=== PATIENT | male | born 1955 | race Caucasian/White ===

== ENCOUNTER 2024-03-21 21:20 | Inpatient (IN) | payer MEDICARE, OTHER ==
[~2024-03-21] VITALS: Ht 167.6 cm; Wt 60.7 kg
[2024-03-21] MEDS ORDERED: mag hydrox/Alum hydrox/simeth 30ml oral suspension PO PRN (22:40)
[2024-03-21] MEDS ORDERED: magnesium hydroxide 30ml (MOM) UD suspension PO PRN (22:50)
[2024-03-21] MEDS ORDERED: loperamide 2mg capsule PO PRN (22:50)
[2024-03-21] MEDS ORDERED: acetaminophen 325mg tablet PO PRN (22:50)
[2024-03-21] MEDS: traZODone 50mg tablet PO ONE (22:52)
[2024-03-22 00:43] VITALS: RESP 18; O2SAT 96
--- NOTE | 2024-03-22 01:49 | NUR ---
Admit Note: Pt arrived via wheelchair from [facility]. Pt on 5150 after trying to harm self. Pt sat in his car and had tubing going from tailpipe into his mouth. Pt wrote a "goodbye" text to brother. Pt stated he felt tired and at peace. Pt's brother pulled him from the car and called 911. Pt was unresponsive. Pt stated he was pissed that it didn't work and if discharged today he would try and harm himself again but would do it at night so no one could stop him. 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 Pt has trouble reading and trouble reading lips. Difficult to complete admission. Urine Tox screen shows positive for Methamphetamine.
[2024-03-22 07:00] VITALS: RESP 12; O2SAT 97
[2024-03-22 08:00] VITALS: BP 134/76; PULSE 64; RESP 12; TEMP 98.3; O2SAT 97
--- NOTE | 2024-03-22 14:29 | NUR ---
Nursing Progress Note: Problem: Impaired communication, fatigue, bad dreams. Interventions: 1:1 assessment, establishment of rapport, therapeutic communication, active listening, ensured contract for safety, encouraged pt to come out of his room, provided direction and simple instructions, fall prevention, Q15 minute safety checks. Response: Pt spent much of the shift sleeping. Pt did come out of his room and eat meals in the dining room. Pt ambulated with a FWW. Pt is deaf. Pt does not seem to be able to read lips. Communicated with pt by writing on a notepad. Pt would read the questions and then respond verbally. Pt pointed at the SI question and shook his head no. In response to the written depression question pt stated, "I really haven't thought about it...I haven't gotten over the sleeping part...I just can't get over being tired." Pt did go on to say, "I'm trying not to think about things or I might get depressed. Pt denied AH, pt did report seeing "spots on the side of this eye." Pt gestured to his right eye. Pt wears glasses. Pt c/o "crazy dreams...fighting with my brother, urinating on the bed." Reviewed pt's paper chart. Pt had what looks to be a +UA on 03/19: moderate leukocyte esterase, 4+ bacteria, 5-10 WBCs, culture indicated. Told pt he possibly had a bladder infection, pt nodded and said, "yes." Will discuss UA results with MD. Plan: Continue to use written communication, notify MD of UA results, continue to maintain safety and assess for mental health symptoms. Addendum: 03/22/24 at 1543 by Rosemary Walker RN (Lee) Hospitalist Dr Cabrera here to see the patient, notified of +UA results from [facility]. Addendum: 03/22/24 at 1715 by Rosemary Walker RN (Lee) Pt has new orders for Protonix 40 mg daily, UA/C&S, Cipro 250 mg BID to start tonight at 2200. Urine sample collected and sent to the lab.
[2024-03-22] MEDS ORDERED: bisacodyl 10mg suppository rectal RC PRN (17:45)
[2024-03-22 19:00] VITALS: RESP 14; O2SAT 98
[2024-03-22 19:11] VITALS: BP 152/86; PULSE 65; RESP 14; TEMP 97.8; O2SAT 98
[2024-03-22] MEDS: ciprofloxacin 250mg tablet PO SCH (20:46)
[2024-03-22] MEDS: traZODone 50mg tablet PO SCH (20:48)
[2024-03-22] MEDS: mag hydrox/Alum hydrox/simeth 30ml oral suspension PO PRN (20:54)
[2024-03-22] MEDS: hydrOXYzine 25 MG tablet PO PRN (21:24)
--- NOTE | 2024-03-23 03:16 | NUR ---
Nursing Progress Note: Lamonte Problem: Impaired communication, Fatique Interventions: 1:1 assessment, establishment of rapport, therapeutic communication, active listening, ensured contract for safety, encouraged pt to come out of his room, provided pt with hand written questions, fall prevention, Q15 minute safety checks and hourly nursing rounds. Response: Pt was asleep at start of shift. Pt was seen up using his FFW. Pt is found sitting on the floor. Pt looks very depressed. Pt stated he wants to be left alone. After a short while pt went back to his room. Pt does no want to talk at this time. Pt did get up for snack but told typewriter ribbon winder he has an upset stomach after eating his meals here. "I feel like I'm going to throw up". Pt was given Maalox 30mls. Pt is compliant with medications tonight. "I've been feeling anxious and tearful today, is there something you can give me". Order obtained for Atarax 25mg TID prn. Pt received 25mg of Atarax which seemed to help. Pt does endorse SI and denies HI/AH/VH. Pt has not had a BM in days, Unsure when last BM occurred. Encouraged pt to take the suppository ordered tomorrow morning. Monitor for safety. Plan: Continue to use written communication, continue to maintain safety and assess for mental health symptoms.
[2024-03-23 07:30] VITALS: BP 132/78; PULSE 62; RESP 12; TEMP 98.2; O2SAT 96
[2024-03-23] MEDS: pantoprazole 40mg Tablet.DR PO SCH (07:58)
--- NOTE | 2024-03-23 16:58 | NUR ---
Nursing Progress Note: Lamonte Problem: Impaired communication, SI Interventions: 1:1 assessment, establishment of rapport, therapeutic communication using writing pad, active listening, ensured contract for safety, encouraged pt to come out of his room, provided pt with hand written questions, fall prevention, Q15 minute safety checks and hourly nursing rounds. Response: RN received pt. asleep in bed at change of shift. Pt. awoke and took and ate breakfast and took all AM medications. Pt. went back to his room and observed resting in bed. 1:1 done at bedside. Pt. communicated using writing pad. Pt. reports SI without a plan. Pt. denies HI, A/V hallucinations. Pt. observed pacing trujillo with his walker. Pt. attended AM group. Pt. observed napping intermittently throughout the day. Pt. showered in the afternoon. Plan: Continue to use written communication, continue to maintain safety and assess for mental health symptoms.
[2024-03-23 20:00] VITALS: BP 120/78; PULSE 67; RESP 16; TEMP 98.3; O2SAT 98
--- NOTE | 2024-03-24 00:28 | NUR ---
Nursing Progress Note: Problem: Impaired communication, SI Interventions: 1:1 assessment, establishment of rapport, therapeutic communication using writing pad, active listening, fall prevention, Q15 minute safety checks and hourly nursing rounds. Response: Patient is pleasant and cooperative with care; compliant with medication. Patient is deaf and has difficulty reading small prints; a note pad with larger writing was used for designer/writer to communicate. Patient continues to endorse SI and stated, "this time I know how to do it without anyone finding me." He denied HI, A/VH but appeared to be explaining having intrusive thoughts; no apparent delusions expressed. Patient inquired how long the doctors intend to hold him; designer/writer explained his legal hold to him. Afterward, patient expressed not feeling safe to discharge at this time and reported he would be willing to stay voluntarily. Patient mostly isolative to his room but briefly walked the unit (requires reminders to use FFW) and HS snack; he is observed sleeping and does not appear to be having difficulty. Plan: Patient continues to require interruption of current crisis in a safe and therapeutic environment with possible medication adjustments. Addendum: 03/24/24 at 0122 by Cira Ivory RN RN reviewed and agrees with WALLPAPER EMBOSSER HELPER documentation.
[2024-03-24 07:30] VITALS: PULSE 63; RESP 16; TEMP 98.1; O2SAT 97
--- NOTE | 2024-03-24 09:03 | NUR ---
Initial: Pt admit for depression with SI. 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 Pt currently on a pureed diet and eating well, documented with 100% PO intake of meals meeting estimated nutrient needs. LBM 03/23 per EMR. No nutrition intervention implemented at this time. Will continue to follow and make recommendations as appropriate. Recommendations: 1) Continue pureed diet; monitor need for BSS with ST 2) Bowel care PRN 3) Weekly scaled weights Addendum: 03/24/24 at [address] Amended: Links added.
[2024-03-24] MEDS: ESCITALOPRAM 10 mg tablet 10 MG TABLET PO ONE (11:32)
[2024-03-24 14:45] VITALS: BP_SYST 138; BP_SYST 141; BP_SYST 143; BP_DIAS 86; BP_DIAS 90; BP_DIAS 95; PULSE 61; PULSE 81; RESP 63
--- NOTE | 2024-03-24 14:45 | NUR ---
Pt. came out of his room and went to his knees (witnessed by staff). Pt. states that he had just gotten out of bed and felt dizzy. Orthostatic vitals taken which were Supine 143/90 HR 61 Sitting 141/95 HR 63 Standing 138/86 HR 81 Reported to pt.'s provider and CMP ordered and pt. is to be encouraged to increase PO fluids.
--- NOTE | 2024-03-24 15:50 | NUR ---
PHONE CALL WITH BROTHER Spoke to Lamonte's twin brother, Rishi (ph# [phone]) to gather information. Rishi reported Lamonte is in the process of getting evicted and has approximately 60 days left in his residence. He lives between [place] and [place] on [place] in a mobile home. He works on the ranch to pay for rent. The civil designer recently shut off his power and water because Lamonte owed money to [employer].Rishi reported Lamonte had a series of unfortunate events that led to his suicide attempt. He reported someone was also trying to get Lamonte arrested for growing marijuana. He reported Lamonte is a very hard worker and very strong (however, he looks quite frail). Rishi reported a couple weeks ago Lamonte had told him that "I have lost something" and seemed quite down and depressed. He also threatened to kill Rishi. He noted someone witnessed Lamonte waving around a pistol and was making statements about wanting to kill Rishi so this person told Rishi about the incident. Rishi reported he sleeps with a gun because he is fearful Lamonte will indeed try to kill him. Lamonte has a daughter and a granddaughter who live in [place]. He does not have contact with them though. Rishi was unsure of housing options for Lamonte upon discharge from [facility]. LEROY Kong
[2024-03-24] MEDS: lactose-reduced food (Ensure Enlive) - 237ml bottle PO SCH (18:11)
[2024-03-24 18:21] LABS: ALANINE AMINOTRANSFERASE 23 U/L (12-78); ALBUMIN 2.9 G/DL (3.4-5.0); ALBUMIN/GLOBULIN RATIO 0.8 (1.1-1.5); ALKALINE PHOSPHATASE 60 IU/L (46-116); ANION GAP 7 (8-16); ASPARTATE AMINO TRANSFERASE 25 U/L (10-37); BILIRUBIN,TOTAL 0.2 MG/DL (0.1-1.0); BLOOD UREA NITROGEN 22 MG/DL (7-18); BUN/CREATININE RATIO 24.2 (10.0-20.0); CALCIUM 8.6 MG/DL (8.5-10.1); CHLORIDE 100 MMOL/L (99-107); CREATININE 0.91 MG/DL (0.60-1.10); GLUCOSE 102 MG/DL (70-104); POTASSIUM 4.3 MMOL/L (3.5-5.1); SODIUM 136 MMOL/L (135-145); TOTAL CARBON DIOXIDE 29.5 MMOL/L (24-32); TOTAL PROTEIN 6.7 G/DL (6.4-8.2); eCRCL 62 ML/MIN; eGFR 83 ML/MIN
--- NOTE | 2024-03-24 18:23 | NUR ---
Nursing Progress Note: Lamonte Problem: Deaf, SI, Dizziness Interventions: 1:1 assessment, establishment of rapport, therapeutic communication using writing pad, active listening, ensured contract for safety, encouraged pt to come out of his room, provided pt with hand written questions, fall prevention, Q15 minute safety checks and hourly nursing rounds. Encouraged pt. to use walker. Encouraged PO fluids. CMP ordered Response: RN received pt. asleep in bed at change of shift. Pt. awoke and took medications and ate breakfast in the community room. Pt. went back to his room and went back to sleep for approx 1 hr. 1:1 done at bedside, pt. reports SI without a plan. When asked if wish he would have succeeded with his suicide attempt, pt. tearful replied, "yes". Pt. began to cry heavily. Pt. states he does want to get better and is hopeful that he will get better. Pt. states, "I don't talk a lot about my emotions". Pt. 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 Pt. reports that 2 years ago he lost all his hearing and has trouble reading lips. Pt. started on Lexapro 10mg. In the afternoon pt. came out of his room and went to his knees (witnessed by staff). Pt. states that he had just gotten out of bed and felt dizzy. Orthostatic vitals taken which were Supine 143/90 HR 61 Sitting 141/95 HR 63 Standing 138/86 HR 81. Reported to pt.'s provider and CMP ordered and pt. is to be encouraged to increase PO fluids. Pt. had normal bowel movement in the afternoon. Plan: Continue to use written communication, continue to maintain safety and assess for mental health symptoms.
[2024-03-24 19:00] VITALS: BP 140/95; PULSE 68; RESP 18; TEMP 98.2; O2SAT 99
[2024-03-24] MEDS: calcium carbonate 500mg chew tablet PO PRN (20:48)
--- NOTE | 2024-03-25 01:36 | NUR ---
Nursing Progress Note: Problem: Impaired communication, SI, anxious Interventions: 1:1 assessment, establishment of rapport, therapeutic communication using writing pad, active listening, fall prevention, Q15 minute safety checks and hourly nursing rounds. Response: Patient is pleasant and cooperative with care; compliant with medication. PRNs Tums for indigestion and Atarax for c/o anxiety. Corrosion Prevention Metal Sprayer continues to communicate with use of notepad and large writing as he is deaf and has difficulty reading small print. Patient requested to communicate with SW for assistance to get prescription appropriate glasses. Patient was served his 5250 this shift and his copy is in his folder at bedside. Patient reported intrusive thoughts to harm himself so he felt relief that the provider has decided to further his care. Patient denied HI, A/VH; no apparent delusions expressed. No syncope episodes noted or reports dizziness. Patient compliant with use of FFW this shift. He participated in HS snack and walked the trujillo prior to bed; observed sleeping and does not appear to be having difficulty. Plan: Patient continues to require interruption of current crisis in a safe and therapeutic environment with possible medication adjustments. Addendum: 03/25/24 at 0241 by Leo Leon RN RN reviewed and agrees with LEVEL VIAL INSPECTOR documentation.
[2024-03-25 07:30] VITALS: BP 126/84; PULSE 74; RESP 16; TEMP 97.6; O2SAT 98
[2024-03-25] MEDS: ESCITALOPRAM 10 mg tablet 10 MG TABLET PO SCH (08:01)
[2024-03-25 08:10] LABS: BASOPHILS # (AUTO) 0.1 X10'3 (0-0.2); BASOPHILS % (AUTO) 1.8 % (0-1); EOSINOPHILS # (AUTO) 0.3 X10'3 (0-0.9); EOSINOPHILS % (AUTO) 6.3 % (0-6); HEMATOCRIT 40.4 % (42.0-52.0); HEMOGLOBIN 13.4 g/dl (14.0-17.9); LYMPHOCYTES # (AUTO) 1.2 X10'3 (1.1-4.8); LYMPHOCYTES % (AUTO) 28.5 % (21-51); MEAN CORPUSCULAR HEMOGLOBIN 34.6 PG (27.0-31.0); MEAN CORPUSCULAR HGB CONC 33.2 g/dL (33.0-36.5); MEAN CORPUSCULAR VOLUME 104.1 FL (78-98); MEAN PLATELET VOLUME 7.5 FL (7.4-10.4); MONOCYTES # (AUTO) 0.5 X10'3 (0-0.9); MONOCYTES % (AUTO) 11.8 % (2-12); NEUTROPHILS # (AUTO) 2.2 X10'3 (1.8-7.7); NEUTROPHILS % (AUTO) 51.6 % (42-75); PLATELET COUNT 293 X10'3 (140-440); RED BLOOD COUNT 3.88 X10'6 (4.70-6.10); RED CELL DISTRIBUTION WIDTH 14.5 % (11.5-14.5); WHITE BLOOD COUNT 4.3 X10'3 (4.5-11.0)
[2024-03-25 08:49] LABS: ALANINE AMINOTRANSFERASE 23 U/L (12-78); ALBUMIN 2.8 G/DL (3.4-5.0); ALBUMIN/GLOBULIN RATIO 0.7 (1.1-1.5); ALKALINE PHOSPHATASE 61 IU/L (46-116); ANION GAP 3 (8-16); ASPARTATE AMINO TRANSFERASE 24 U/L (10-37); BILIRUBIN,TOTAL 0.3 MG/DL (0.1-1.0); BLOOD UREA NITROGEN 24 MG/DL (7-18); BUN/CREATININE RATIO 27.9 (10.0-20.0); CALCIUM 8.8 MG/DL (8.5-10.1); CHLORIDE 103 MMOL/L (99-107); CREATININE 0.86 MG/DL (0.60-1.10); GLUCOSE 91 MG/DL (70-104); POTASSIUM 4.6 MMOL/L (3.5-5.1); SODIUM 136 MMOL/L (135-145); TOTAL PROTEIN 6.8 G/DL (6.4-8.2); eCRCL 65 ML/MIN; eGFR 89 ML/MIN
[2024-03-25] MEDS: acetaminophen 325mg tablet PO PRN (09:37)
[2024-03-25] MEDS ORDERED: calcium carbonate 500mg chew tablet PO PRN (15:45)
--- NOTE | 2024-03-25 16:47 | NUR ---
Nursing Progress Note: Lamonte Problem: Deaf, Dizziness, headache Interventions: 1:1 assessment, establishment of rapport, therapeutic communication using writing pad, active listening, ensured contract for safety, encouraged pt to come out of his room, provided pt with hand written questions, fall prevention, Q15 minute safety checks and hourly nursing rounds. Encouraged pt. to use walker. Encouraged PO fluids. Response: RN received pt. asleep in bed at change of shift. Pt. awoke and ate breakfast in community room and took all medications. 1:1 done at bedside, pt. denies SI/HI, A/V hallucinations. Pt. reports feeling hopeful about getting better. Pt. c/o headache and received Tylenol 650mg po with moderate effect. Pt. continues to report feeling dizzy at times. RN encouraged pt. to increase fluid intake. Pt. ate lunch in the community room. After lunch pt. observed pacing hallway with walker, RN encouraged pt. to take a break if he started to feel dizzy. In the afternoon pt. observed coloring in community room. Plan: Continue to use written communication, continue to maintain safety and assess for mental health symptoms.
[2024-03-25 19:10] VITALS: BP 165/90; PULSE 69; RESP 18; TEMP 98.2; O2SAT 96
[2024-03-25 19:20] VITALS: RESP 18; O2SAT 99
[2024-03-25] MEDS: carbamide peroxide 15ml bottle EACH EAR SCH (20:30)
[2024-03-25] MEDS: traZODone 50mg tablet PO SCH (20:30)
[2024-03-25 21:40] VITALS: PULSE 99; RESP 20; O2SAT 86
[2024-03-25 21:42] VITALS: BP 128/75; PULSE 99; RESP 26; TEMP 100.7; O2SAT 88
--- NOTE | 2024-03-25 22:01 | NUR ---
Patient reported SOB stating, "I can't breathe!" A set of Vital Signs was obtained: PO2 88, HR 99, Temp 100.7 Resp was paged to assess patient. CHAI Smalls was notified at 21:45. The Resident Stephen Castillo MD was notified. Stat CXR, Covid, and ABG's were ordered. Given 650 mg Tylenol Tab PO was admined for Temp. Placed on 3 L O2 via nasal cannulae. Addendum: 03/26/24 at 0025 by Zuleika Shepherd RN ordered Rapid Influenza, a labs. Covid and Flu were negative.
[2024-03-25 23:04] LABS: ABG BASE EXCESS 5.1 mmol/L (-2.0-2.0); ABG HCO3 30.2 mmol/L (22.0-26.0); ABG OXYGEN SATURATION 98.7 % (92-98.5); ABG PCO2 (T) 47.2 mmHg (35.0-48.0); ABG PH (T) 7.425 (7.340-7.440); ABG PO2 (T) 124.8 mmHg (75.0-100.0); ALLEN'S TEST POSITIVE; FCOHb 0.3 % (0.5-1.5); FHHb 1.3 % (0.0-5.0); FLOW 3 L/min; FMetHb 0.3 % (0.0-1.5); FO2Hb 98.1 % (94-97); MODE NASAL CANNULA; PATIENT TEMPERATURE 37.4; TOTAL HEMOGLOBIN 11.9 G/dl (14.0-17.9)
[2024-03-25 23:11] LABS: BASOPHILS % (AUTO) 0.3 % (0-1); EOSINOPHILS # (AUTO) 0.2 X10'3 (0-0.9); EOSINOPHILS % (AUTO) 3.6 % (0-6); HEMATOCRIT 32.7 % (42.0-52.0); LYMPHOCYTES # (AUTO) 1.1 X10'3 (1.1-4.8); LYMPHOCYTES % (AUTO) 24.3 % (21-51); MEAN CORPUSCULAR HEMOGLOBIN 34.5 PG (27.0-31.0); MEAN CORPUSCULAR HGB CONC 33.5 g/dL (33.0-36.5); MEAN PLATELET VOLUME 7.4 FL (7.4-10.4); MONOCYTES # (AUTO) 0.4 X10'3 (0-0.9); MONOCYTES % (AUTO) 9.7 % (2-12); NEUTROPHILS # (AUTO) 2.8 X10'3 (1.8-7.7); NEUTROPHILS % (AUTO) 62.1 % (42-75); PLATELET COUNT 261 X10'3 (140-440); RED BLOOD COUNT 3.18 X10'6 (4.70-6.10); RED CELL DISTRIBUTION WIDTH 14.2 % (11.5-14.5); WHITE BLOOD COUNT 4.6 X10'3 (4.5-11.0)
[2024-03-25 23:15] LABS: D-DIMER 0.27 MG/L FEU (0-0.50)
[2024-03-25 23:18] LABS: ALANINE AMINOTRANSFERASE 22 U/L (12-78); ALBUMIN 2.7 G/DL (3.4-5.0); ALBUMIN/GLOBULIN RATIO 0.8 (1.1-1.5); ALKALINE PHOSPHATASE 53 IU/L (46-116); ANION GAP 4 (8-16); ASPARTATE AMINO TRANSFERASE 25 U/L (10-37); BILIRUBIN,TOTAL 0.1 MG/DL (0.1-1.0); BLOOD UREA NITROGEN 34 MG/DL (7-18); BUN/CREATININE RATIO 32.4 (10.0-20.0); CALCIUM 8.6 MG/DL (8.5-10.1); CHLORIDE 102 MMOL/L (99-107); CREATININE 1.05 MG/DL (0.60-1.10); GLUCOSE 128 MG/DL (70-104); POTASSIUM 4.2 MMOL/L (3.5-5.1); SODIUM 137 MMOL/L (135-145); TOTAL CARBON DIOXIDE 30.6 MMOL/L (24-32); TOTAL PROTEIN 6.2 G/DL (6.4-8.2); eCRCL 53 ML/MIN; eGFR 70 ML/MIN
[2024-03-25 23:30] LABS: FERRITIN 58 NG/ML (26-388)
[2024-03-26 00:30] VITALS: BP 111/66; PULSE 71; RESP 12; TEMP 99.2; O2SAT 96
--- NOTE | 2024-03-26 04:50 | NUR ---
Nursing Progress Note: Lamonte Problem: Deaf, Dizziness, headache, Interventions: 1:1 assessment, establishment of rapport, therapeutic communication using writing pad, active listening, ensured contract for safety, encouraged pt to come out of his room, provided pt with hand written questions, fall prevention, Q15 minute safety checks and hourly nursing rounds. Encouraged pt. to use walker. Encouraged PO fluids. Response: Received report from AM shift nurse, assumed care. Pt in room sitting on bed. Pt pleasant, cooperative and compliant with medication this shift. Pt denies all MH symptoms at this time. Pt reported attempted SI due to life stressors. Pt reported feeling overwhelmed, and depressed. Pt reported he lost his job, his home and having to camp next to the trailer with no source of toilet food or water. Pt reported he barely making $750 something dollars a month. Pt reported he could not get help due to hearing loss and missed phone calls and appointments. Pt is relieved he is here so he could get help. [place]. Pt c/o headaches this evening and PRN Tylenol administered but still had pain. Pt was coughing and throwing up clear phlegm and reported he could not breathe. RN supervisor braiding notified. RN called MD and respiratory for evaluation. MD ordered labs and chest x-ray at this time. Respiratory ordered oxygen for comfort measures. O2 sat at 96% at 1L. Respiratory recommended range from 88-93%. This greeting card writer encourage Pt to increase fluid intake Pt verbalize understand and reported had pain in throat from breathing in exhaust fumes. Pt participated in snacks, uses walker to ambulate on unit and spent most of the time in his room. Will continue to monitor. Plan: Continue to use written communication, continue to maintain safety and assess for mental health symptoms. Addendum: 03/26/24 at 0527 by Zuleika Shepherd RN Care was transferred to RN due to Respiratory Distress. I have reviewed the BACK TACKER note. Zuleika Shepherd, RN
--- NOTE | 2024-03-26 05:25 | NUR ---
Due to respiratory distress care was transferred from [facility] to JODI Bailey.
[2024-03-26 07:00] VITALS: BP 157/96; PULSE 86; RESP 14; TEMP 98.7; O2SAT 97
--- NOTE | 2024-03-26 07:15 | NUR ---
Hospitalist was paged this morning, INDIVIDUAL SMALL GROUP INSTRUCTOR returned the call. She will come see the patient. INDIVIDUAL SMALL GROUP INSTRUCTOR notified of pt's urine culture; organism not sensitive to Cipro which is what pt is currently taking for UTI. Pt exhibited s/sx of sepsis last night with decreased O2 sats, decreased BP, increased HR, and low grade temp. Labs for LA and procalcitonin ordered last night were not done STAT. Called lab to come draw LEIGH this morning. Pt continues on O2 via NC. Pt is currently on LOS.
[2024-03-26] MEDS: folic acid/vitamin B complex w/vitamin C 0.8mg tablet PO SCH (07:16)
[2024-03-26] MEDS: levoTHYROXINE 25mcg tablet PO SCH (07:16)
[2024-03-26] MEDS: ESCITALOPRAM 10 mg tablet 10 MG TABLET PO SCH (07:17)
[2024-03-26] MEDS: sulfamethoxazole/trimethoprim DS (800/160mg) tablet PO STA (07:32)
[2024-03-26 08:07] LABS: BASOPHILS # (AUTO) 0.1 X10'3 (0-0.2); BASOPHILS % (AUTO) 0.8 % (0-1); EOSINOPHILS # (AUTO) 0.2 X10'3 (0-0.9); EOSINOPHILS % (AUTO) 1.8 % (0-6); HEMATOCRIT 36.8 % (42.0-52.0); HEMOGLOBIN 12.4 g/dl (14.0-17.9); LYMPHOCYTES # (AUTO) 0.9 X10'3 (1.1-4.8); LYMPHOCYTES % (AUTO) 9.6 % (21-51); MEAN CORPUSCULAR HEMOGLOBIN 34.9 PG (27.0-31.0); MEAN CORPUSCULAR HGB CONC 33.8 g/dL (33.0-36.5); MEAN CORPUSCULAR VOLUME 103.1 FL (78-98); MEAN PLATELET VOLUME 7.4 FL (7.4-10.4); MONOCYTES # (AUTO) 0.8 X10'3 (0-0.9); MONOCYTES % (AUTO) 8.4 % (2-12); NEUTROPHILS # (AUTO) 7.6 X10'3 (1.8-7.7); NEUTROPHILS % (AUTO) 79.4 % (42-75); PLATELET COUNT 276 X10'3 (140-440); RED BLOOD COUNT 3.57 X10'6 (4.70-6.10); RED CELL DISTRIBUTION WIDTH 14.1 % (11.5-14.5); WHITE BLOOD COUNT 9.6 X10'3 (4.5-11.0)
[2024-03-26 08:16] LABS: ALANINE AMINOTRANSFERASE 25 U/L (12-78); ALBUMIN 2.7 G/DL (3.4-5.0); ALBUMIN/GLOBULIN RATIO 0.7 (1.1-1.5); ALKALINE PHOSPHATASE 54 IU/L (46-116); ANION GAP 2 (8-16); ASPARTATE AMINO TRANSFERASE 29 U/L (10-37); BILIRUBIN,TOTAL 0.4 MG/DL (0.1-1.0); BLOOD UREA NITROGEN 26 MG/DL (7-18); BUN/CREATININE RATIO 27.1 (10.0-20.0); CALCIUM 8.7 MG/DL (8.5-10.1); CHLORIDE 103 MMOL/L (99-107); CREATININE 0.96 MG/DL (0.60-1.10); GLUCOSE 82 MG/DL (70-104); POTASSIUM 4.3 MMOL/L (3.5-5.1); SODIUM 137 MMOL/L (135-145); TOTAL CARBON DIOXIDE 31.6 MMOL/L (24-32); TOTAL PROTEIN 6.5 G/DL (6.4-8.2); eCRCL 58 ML/MIN; eGFR 78 ML/MIN
[2024-03-26] MEDS: lactose-reduced food (Ensure High Protein) 237ml bottle PO SCH (13:00)
--- NOTE | 2024-03-26 17:21 | NUR ---
Nursing Progress Note: Lamonte Problem: Deaf, Dizziness, headache Interventions: 1:1 assessment, establishment of rapport, therapeutic communication using writing pad, active listening, ensured contract for safety, encouraged pt to come out of his room, provided pt with hand written questions, fall prevention, Q15 minute safety checks and hourly nursing rounds. Encouraged pt. to use walker. Encouraged PO fluids. Response: Received patient sleeping in bed at change of shift. Patient awakened and given his medications. Patient by report had a rough night with fever and respiratory distress. Patient's VSS this morning, afebrile. Labs were ordered stat. Patient's antibiotic was changed to Macrobid because culture was not sensitive to Cipro. Patient did get up and walk the halls three times at a moderately fast pace with walker and staff. Patient was able to take a shower independently. Patient is now walking hallways with walker after his shower. Plan: Continue to use written communication, continue to maintain safety and assess for mental health symptoms.
[2024-03-26 19:15] VITALS: RESP 16; O2SAT 98
[2024-03-26 19:37] VITALS: BP 130/86; PULSE 74; RESP 18; TEMP 98.2; O2SAT 97
[2024-03-26] MEDS: sulfamethoxazole/trimethoprim DS (800/160mg) tablet PO SCH (20:14)
--- NOTE | 2024-03-26 21:25 | NUR ---
Client requested O2 nasal cannulae at night. Reported feeling like he "has a hard time breathing" when he lay's down. CHAI Oscar was notified. Orders were obtained for 2 L O2 nasal cannula, and monitor PO2 at night. Client has sitter while on O2.
--- NOTE | 2024-03-27 02:21 | NUR ---
Nursing Progress Note: Lamonte Problem: Deaf, headache, depression Interventions: 1:1 assessment, establishment of rapport, therapeutic communication using writing pad, active listening, ensured contract for safety, encouraged pt to come out of his room, provided pt with hand written questions, fall prevention, Q15 minute safety checks and hourly nursing rounds. Encouraged pt. to use walker. Encouraged PO fluids. Response: Received report from AM shift nurse, assumed care. Pt walking around unit. Pt pleasant, cooperative and compliant with medication this shift. Pt denies all MH symptoms at this time. Pt reported having 6/10 depression regarding life stressors. Pt request for O2 at HS, reported it helps him sleep and headaches. O2 administered for comfort measures. Respiratory recommended range from 88-93%. Pt reported 8/10 pain Tylenol administered and is effective. This filing writer encourage Pt to increase fluid intake Pt verbalize understand. Pt has new antibiotic ordered for UTI. Pt participated in snacks, uses walker to ambulate on unit and spent most of the time in his room. Will continue to monitor. Plan: Continue to use written communication, continue to maintain safety and assess for mental health symptoms.
--- NOTE | 2024-03-27 03:50 | NUR ---
I have reviewed the TERMITE CONTROL TECHNICIAN note. Patient is a LOS. Zuleika Shepherd RN
[2024-03-27 07:00] VITALS: BP 109/79; PULSE 72; RESP 16; TEMP 98.4; O2SAT 93
[2024-03-27] MEDS: thiamine 100mg tablet PO SCH (08:42)
--- NOTE | 2024-03-27 17:39 | NUR ---
Nursing Progress Note: Lamonte Problem: Deaf, Dizziness, headache Interventions: 1:1 assessment, establishment of rapport, therapeutic communication using writing pad, active listening, ensured contract for safety, encouraged pt to come out of his room, provided pt with hand written questions, fall prevention, Q15 minute safety checks and hourly nursing rounds. Encouraged pt. to use walker. Encouraged PO fluids. Response: Patient sleeping in bed at change of shift. Patient is medication compliant. Patient had breakfast in the dining room with his peers. Patient cannot hear which makes communication difficult. Questions were written down and he was able to answer them. Patient denies SI. Denies all mental health symptoms. Patient sleeps most of the day except for meals. Patient drank 100% of his ensure, had a normal BM. Patient complained of headache and was given 650 mg of Tylenol x 2. Patient walked the hallways independently and took a shower. Plan: Continue to use written communication, continue to maintain safety and assess for mental health symptoms.
[2024-03-27 19:00] VITALS: BP 137/84; PULSE 75; RESP 20; TEMP 98.7; O2SAT 96
--- NOTE | 2024-03-27 22:36 | NUR ---
Nursing Progress Note: Lamonte Problem: Deaf, Dizziness, headache Interventions: 1:1 assessment, establishment of rapport, therapeutic communication using writing pad, active listening, ensured contract for safety, encouraged pt to come out of his room, provided pt with hand written questions, fall prevention, Q15 minute safety checks and hourly nursing rounds. Encouraged pt. to use walker. Encouraged PO fluids. Response: ] Plan: Continue to use written communication, continue to maintain safety and assess for mental health symptoms.
--- NOTE | 2024-03-27 22:44 | NUR ---
Nursing Progress Note: Lamonte Problem: Deaf, Dizziness, headache Interventions: 1:1 assessment, establishment of rapport, therapeutic communication using writing pad, active listening, ensured contract for safety, encouraged pt to come out of his room, provided pt with hand written questions, fall prevention, Q15 minute safety checks and hourly nursing rounds. Encouraged pt. to use walker. Encouraged PO fluids. Response: Patient laying in bed resting. Patient got up for snack time, and found a friend to talk with and he was talking as fast as he could telling stories of his youth. Patient was smiling from ear to ear, and animated telling stories. Patient is medication compliant. Debrox instilled into ears. Tomorrow will be day four when they will need to get irrigated with bulb syringe and warm water. Plan: Continue to use written communication, continue to maintain safety and assess for mental health symptoms.
[2024-03-28 07:30] VITALS: BP 127/79; PULSE 70; RESP 18; TEMP 98.8; O2SAT 95
[2024-03-28 08:30] VITALS: RESP 18; O2SAT 95
--- NOTE | 2024-03-28 13:37 | NUR ---
Called Rishi (ph# [phone]), Lamonte's brother, and asked if he could look for Lamonte's wallet. Informed him Lamonte said that it is in the middle console in his car. Rishi reported he will look for it tomorrow. He said if he finds it he will bring it to him along with his hearing aid. LEROY Kong
--- NOTE | 2024-03-28 14:08 | NUR ---
Requested Chantale Vu to meet with Lamonte to see if he would qualify for Medi-yo[facility]. Valdez Perez LMFT
--- NOTE | 2024-03-28 16:55 | NUR ---
Nursing Progress Notes: Problems: Deaf, isolating to room, headaches Interventions: Q15min rounding; QH RN rounding; Medication evaluation; administration and monitoring; Active listening and therapeutic communication; maintained a safe and supportive environment; provided clear and simple instructions; open-ended questions; Encouraged use of walker; CT scan; PRN Tylenol Response: Upon shift change noted patient up in room sleeping. Denies SI, HI ("I'm not violent." and VH. Endorses +AH. "I hear cats meowing and dogs barking." Reports, "I don't know why I did it (suicide attempt), I guess I was just overwhelmed with everything. In 2013 I was fighting cancer and here I am trying to end my life. I don't know what changed in the last 5 years. I just thought I'm 71 and I've lived a good life." Compliant with meds. PRN Tylenol's given for TAMAYO, with success. CT scan done this AM d/t frequent TAMAYO's. CT showed no acute intracranial abnormality. However there is sulcal and ventricular prominence noted. Isolated to room and slept when not up for meals. Will continue to monitor. Plan: Continue plan of care.
[2024-03-28 19:00] VITALS: RESP 16; O2SAT 96
[2024-03-28 20:00] VITALS: BP 157/93; PULSE 64; RESP 14; TEMP 98.5; O2SAT 97
--- NOTE | 2024-03-29 01:04 | NUR ---
Nursing Progress Note: Lamonte Problem: Deaf, Dizziness, headache Interventions: 1:1 assessment, therapeutic communication using writing pad, active listening, encouraged pt to come out of his room, provided pt with hand written questions, fall prevention, Q15 minute safety checks and hourly nursing rounds. Encouraged pt. to use walker. Response: Received patient sitting in chair in his bedroom. Patient had notepad at bedside we used to communicate. Later in the tv room we communicated without it. Patient mostly isolates in room. Patient got up for snack time. Patient observed walking very fast laps in the hallway with his walker. Patient cooperative with medications and assessment. Debrox instilled into ears. I believe tomorrow will be day four when they will need to get irrigated with bulb syringe and warm water. Patient used o2 nasal canula. Sitter in room. roommate on CPAP. Plan: Continue to use written communication, continue to maintain safety and assess for mental health symptoms. Discharge plan still unclear.
[2024-03-29 07:45] VITALS: BP 150/84; PULSE 57; RESP 18; TEMP 98.2; O2SAT 95
[2024-03-29 10:00] VITALS: RESP 16
--- NOTE | 2024-03-29 13:33 | NUR ---
Malnutrition consult: Per first malnutrition screen pt reports 2-13 pounds wt loss and decreased PO intake/appetite. Per 2nd-4th malnutrition screen pt denies recent wt loss, reports gained 6 pound, and denies poor PO intake/appetite. Initial wt on admit of 55.3kg and current wt of 59.7kg confirms pt actually has gained wt. Pt continues on a pureed diet with great appetite of mostly 100% intake. Pt is also receiving Ensure high protein TIDWM with great acceptance of mostly 100% intake. Pt presents with mild weakness which is anticipated given age and no edema at this time. Pt lacks a minimum of two malnutrition criteria at this time. Addendum: 03/29/24 at [address] Amended: Links added.
--- NOTE | 2024-03-29 14:01 | NUR ---
Nursing Progress Notes: Problems: Deaf, Isolating to room Interventions: Q15min rounding; QH RN rounding; Medication evaluation; administration and monitoring; Active listening and therapeutic communication; maintained a safe and supportive environment; provided clear and simple instructions; open-ended questions; Encouraged use of walker; PRN Tylenol Response: Upon shift change noted patient up in room sleeping. Woke up for meds. Compliant with meds. PRN Tylenol given with success. Denies all mental health s/sx. Isolates to room. Showered today. Patient is very [place] however can read lips and read written communication with glasses on. Participates in group. Will continue to monitor. Plan: Continue plan of care.
--- NOTE | 2024-03-29 15:06 | NUR ---
F/u: Received TC from RN inquiring about ONS as pt with Ensure Enlive TID and Ensure High Protein TID ordered. RD recommends discontinuing ONS altogether as pt with mostly 100% PO intake of meals while receiving double protein TID providing ~2919 kcal/day and ~234 g protein/day which meets 176% maximum estimated energy needs and 425% maximum estimated protein needs alone, not including documented mostly 100% PO intake of ONS and any snacks pt may be consuming. Addendum: 03/29/24 at [address] Amended: Links added.
[2024-03-29 19:00] VITALS: RESP 18; O2SAT 95
[2024-03-29 20:00] VITALS: BP 154/85; PULSE 66; RESP 14; TEMP 97.5; O2SAT 97
--- NOTE | 2024-03-30 02:24 | NUR ---
Nursing Progress Note: Lamonte Problem: Deaf, Dizziness, headache, isolating Interventions: 1:1 assessment, therapeutic communication using writing pad, active listening, encouraged pt to come out of his room, provided pt with hand written questions, fall prevention, Q15 minute safety checks and hourly nursing rounds. Encouraged pt. to use walker. Response: Received patient sitting lying in bed. Patient was in bed the entire shift. Patient had notepad at bedside we used to communicate. Patient cooperative with medications and assessment. Patient used o2 nasal canula. Sitter in room. Patient denies SI/HI/AH/VH. Plan: Continue to use written communication, continue to maintain safety and assess for mental health symptoms. Discharge plan still unclear.
[2024-03-30 07:00] VITALS: RESP 14; O2SAT 97
[2024-03-30 07:45] VITALS: BP 154/85; PULSE 66; RESP 14; TEMP 97.5; O2SAT 97
--- NOTE | 2024-03-30 08:49 | NUR ---
MEDI-LISA APPLICATION SUBMITTED 03/29/24 LEROY Kong
--- NOTE | 2024-03-30 13:23 | NUR ---
Nursing Progress Notes: Problems: Deaf, TAMAYO, Isolating to room, Placement Interventions: Q15min rounding; QH RN rounding; Medication evaluation; administration and monitoring; Active listening and therapeutic communication; maintained a safe and supportive environment; provided clear and simple instructions; open-ended questions; Encouraged use of walker; PRN Tylenol Response: Upon shift change noted patient up in room sleeping. Woke up for meds. Compliant with meds. PRN Tylenol given with success. Denies all mental health s/sx. "I'm not violent. Participating in groups and meals then remains in room. Patient is very [place] however can read lips and read written communication with glasses on. Participates in group. Denies SI, HI "I'm not violent", AH or VH. Debrox drops treatment completed yesterday and flushed with warm water today per this RN. Will continue to monitor. Plan: Continue plan of care.
[2024-03-30 19:00] VITALS: RESP 16; O2SAT 96
[2024-03-30 20:00] VITALS: BP 124/76; PULSE 65; RESP 14; TEMP 97.8; O2SAT 95
--- NOTE | 2024-03-31 01:25 | NUR ---
Nursing Progress Note: Lamonte Problem: Deaf, isolating, discharge planning Interventions: 1:1 assessment, therapeutic communication using writing pad, active listening, encouraged pt to come out of his room, provided pt with hand written questions, fall prevention, Q15 minute safety checks and hourly nursing rounds. Encouraged pt. to use walker. Response: Received patient up in the small tv room with peers. Observed heading back to his room a little while later with his walker. Patient is very fast and steady with his walker. Patient had notepad at bedside we used to communicate. Patient reports ear irrigation was very helpful. He can hear a little better now. I believe we still do not have his hearing aid. Patient reports he likes to stay in bed because it is too cold on the unit. He is freezing and prefers to stay under the covers. Patient cooperative with medications and assessment. Patient used o2 nasal canula. Sitter in room. Patient denies SI/HI/AH/VH. Plan: Continue to use written communication, continue to maintain safety and assess for mental health symptoms. Discharge plan still unclear.
[2024-03-31 07:00] VITALS: BP 150/93; PULSE 59; RESP 16; TEMP 98.1; O2SAT 96
[2024-03-31] MEDS ORDERED: simethicone 80mg chew tab PO PRN (14:10)
--- NOTE | 2024-03-31 17:43 | NUR ---
Nursing Progress Notes: Problems: Deaf, TAMAYO, Isolating to room, Placement Interventions: Q15min rounding; QH RN rounding; Medication evaluation; administration and monitoring; Active listening and therapeutic communication; maintained a safe and supportive environment; provided clear and simple instructions; open-ended questions; Encouraged use of walker; PRN Tylenol Response: Patient sleeping at change of shift. Patient awakens and takes his medications without difficulty. Patient then goes and eats breakfast with cohorts. Patient has been eating 100% of his meals. Patient got showered and shaved today. He has been ambulating around unit with walker, and is steady on his feet. Patient appears happy today. There was an incident where another patient grabbed his arm and was intrusively asking him if he went to buddhist, etc. and he had a panic attack and required intervention from another patient standing by who whisked him away to his room. Patient is now afraid of patient in [address]. Plan: Continue plan of care.
[2024-03-31 19:00] VITALS: RESP 20; O2SAT 91
[2024-03-31 20:00] VITALS: BP 122/86; PULSE 50; RESP 20; TEMP 97.8; O2SAT 91
[2024-03-31] MEDS: oxybutynin 5mg tablet PO SCH (20:17)
[2024-03-31] MEDS ORDERED: tamsulosin 0.4mg capsule PO SCH (21:00)
--- NOTE | 2024-04-01 03:27 | NUR ---
Nursing Progress Note: Lamonte Problem: Poor Hearing, isolates, discharge planning Interventions: 1:1 assessment, therapeutic communication using writing pad, active listening, encouraged pt to come out of his room, provided pt with hand written questions, fall prevention, Q15 minute safety checks and hourly nursing rounds. Encouraged pt. to use walker. Response: Received patient up and in his room, sitting on edge of bed. Pt cooperative with vitals and spoke at length about high school years and events that led up to his SA. Very freindly and talkative. He was attempting to "go into his "unconcious, to get into my memory...access more of my brain. Right now my head feels heavy , like I hear an echo". He denies SI/HI/AVH's at this time.Pt ate snack and walked unit a bit before laying down to sleep. He woke several times to urinate. Pt currently sleeping with nasal canula providing 0.5 L o2. Will continue to monitor. Pt is on LOS observation while O2 tubing at bedside. Plan: Continue to use written communication, continue to maintain safety and assess for mental health symptoms. Discharge plan still unclear.
[2024-04-01] MEDS: aripiprazole 2MG tablet PO SCH (07:15)
[2024-04-01 07:30] VITALS: BP 133/76; PULSE 95; RESP 14; RESP 64; TEMP 98.2; O2SAT 98
[2024-04-01] MEDS ORDERED: ibuprofen 200mg tablet PO PRN (15:45)
[2024-04-01] MEDS: ibuprofen 200mg tablet PO PRN (16:23)
[2024-04-01] MEDS: acetaminophen 325mg tablet PO ONE (17:16)
--- NOTE | 2024-04-01 17:31 | NUR ---
Nursing Progress Notes: Lamonte Problems: Deaf, TAMAYO, Isolating to room, Placement Interventions: Q15min rounding; QH RN rounding; Medication evaluation; administration and monitoring; Active listening and therapeutic communication; maintained a safe and supportive environment; provided clear and simple instructions; open-ended questions; Encouraged use of walker; PRN Tylenol and Motrin Response: RN received pt. asleep in bed at change of shift. Pt. awoke and took all medications and ate breakfast in community room. Pt. isolated to his room most of the day. 1:1 done at bedside. Pt. denies SI/HI, A/V hallucinations. Pt. reports feeling more depressed today, pt. states, "it's this headache". Pt. reports 9/10 headache. Pt. given Tylenol 650mg with minimal effect. Pt. then given Motrin 400mg with moderate effect. Pt. napped intermittently throughout the day. At dinner pt. received an additional Tylenol 650mg. Plan: Continue plan of care.
[2024-04-01] MEDS: aspirin/acetaminophen/caffeine tablet PO ONE (18:23)
[2024-04-01 19:00] VITALS: BP 159/90; PULSE 62; RESP 12; TEMP 97.6; O2SAT 95
[2024-04-01 20:00] VITALS: RESP 12; O2SAT 95
--- NOTE | 2024-04-02 03:10 | NUR ---
Nursing Progress Notes: Lamonte Problems: Deaf, Placement, UTI, Oxygen at night Interventions: Q15min rounding; QH RN rounding; Medication evaluation; administration and monitoring; Active listening and therapeutic communication; maintained a safe and supportive environment; provided clear and simple instructions; open-ended questions; Encouraged use of walker Response: Pt is visible on unit at start of shift. Pt is using his FWW with steady gait. Pt is able to communicate better, able to hear out of his left ear. Pt attended snack. Pt denies SI/HI, pt is using coping skills to keep from feeling suicidal. Pt does still have AH, which are more intrusive thoughts. No delusional statements made. No RIS observed. Pt is depressed but does not feel anxious. Pt is able to make his needs known. Pt is compliant with HS medications. Taking his antibiotic for his UTI. Pt not c/o symptoms. Pt is reading in bed before going to sleep. Pt is on LOS for oxygen use during his sleep hours. Sitter in room. awaiting placement. Monitor for safety. Plan: Continue plan of care.
[2024-04-02 07:00] VITALS: RESP 16; O2SAT 100
[2024-04-02 08:00] VITALS: BP 130/89; PULSE 76; RESP 16; TEMP 97.7; O2SAT 100
[2024-04-02] MEDS ORDERED: aspirin/acetaminophen/caffeine tablet PO PRN (10:00)
--- NOTE | 2024-04-02 17:30 | NUR ---
Nursing Progress Notes: Lamonte Problems: Hard of hearing, TAMAYO, Isolating to room, Placement Interventions: Q15min rounding; QH RN rounding; Medication evaluation; administration and monitoring; Active listening and therapeutic communication; maintained a safe and supportive environment; provided clear and simple instructions; open-ended questions; Encouraged use of walker; PRN Tylenol and Motrin Response: Patient was asleep at change of shift and up soon after. Patient is calm and cooperative. Patient is frustrated with his roommate because his BR cleanliness is not good. Patient takes his medication as prescribed. Patient denies suicidal ideation. Patient denies hearing voices. Patient took several naps. Patient has had migraine TAMAYO's today. CHAI Fischer believes the TAMAYO's could be from the inhalation of the Carbon Monoxide. Patient has medication Q6 hours for his TAMAYO's. RN gave patient the medication twice today. Plan: Continues to require interruption of current crisis in a safe and therapeutic environment until safe discharge is established.
[2024-04-02] MEDS: lactose-reduced food (Ensure High Protein) 237ml bottle PO SCH (18:10)
[2024-04-02 19:00] VITALS: RESP 18; O2SAT 94
[2024-04-02] MEDS: aspirin/acetaminophen/caffeine tablet PO PRN (19:31)
[2024-04-02 20:00] VITALS: BP 183/94; PULSE 63; RESP 18; TEMP 97.2; O2SAT 94
[2024-04-02] MEDS: aripiprazole 5mg tablet PO SCH (20:28)
--- NOTE | 2024-04-03 03:54 | NUR ---
Nursing Progress Notes: Lamonte Problems: Anxiety, [place], Oxygen at night Interventions: Q15min rounding; QH RN rounding; Medication evaluation; administration and monitoring; Active listening and therapeutic communication; maintained a safe and supportive environment; provided clear and simple instructions; open-ended questions; Encouraged use of walker, LOS for oxygen at noc 0.5lpm via nc. Response: Pt is visible on unit. Pt is using FWW melanie ambulating up and down hallway for exercise. Pt is feeling anxious about his visit with his brother tomorrow. Pt was given Atarax 25mg with helped him. Pt stated he has a headache 02/08. Pt was given Excedrin 2 tablets for the pain. Pt stated it did help. Pt is able to hear out of his left ear enough to communicate. "I don't want to get upset with my brother tomorrow. I love him but I'm nervous about the visit". Facilities Manager suggested at pt's request, that he take some Atarax before the visit and if he's feeling like he's going to say the wrong thing, just end the visit. Pt thanked freelance writer and asked if I would let the day shift nurse know the plan. Pt denies SI but is having AH as well as Tactile Hallucinations. "I can feel my feet being touched but I'm awake and no one is there". Pt also explained this to CHAI Fischer. Pt asked for medication to help relieve this. Pt's Abilify was changed to HS instead of AM. Pt is LOS for oxygen via nasal cannula. Monitor for safety. Plan: Continue plan of care.
[2024-04-03 07:00] VITALS: RESP 16; O2SAT 96
[2024-04-03] MEDS: levoTHYROXINE 25mcg tablet PO SCH (07:30)
[2024-04-03 08:00] VITALS: BP 134/83; PULSE 67; RESP 16; TEMP 97.9; O2SAT 96
[2024-04-03] MEDS ORDERED: aripiprazole 5mg tablet PO SCH (08:00)
--- NOTE | 2024-04-03 16:41 | NUR ---
Nursing Progress Notes: Lamonte Problems: [place], headache, UTI, safe discharge plan Interventions: Q15min rounding; RN rounding; Medication evaluation; administration and monitoring; Active listening and therapeutic communication; maintained a safe and supportive environment; provided clear and simple instructions; open-ended questions; PRN Tylenol and Excedrin. PT consult. Response: Received pt in the afternoon during visiting hours, pt had a visit from his brother. Observed smiling and laughing. Pt denies SI/HI and AVH. Per resident note pt has a UTI, currently taking Septra. Pt c/o a headache, administered PRN Excedrin without effect. Administered PRN Tylenol and then pt took a nap, however he woke to report that the pain was 8/10. Offered pt PRN Ibuprofen, but he declined stating that it wouldn't work. Discussed headache with PA, no new orders at this time. Pt had a PT consult and they recommended that he can walk without a walker, which pt is observed doing with a steady gait. Will continue to monitor. Plan: Continues to require interruption of current crisis in a safe and therapeutic environment until safe discharge is established. Addendum: 04/03/24 at 1730 by Jessica Molina RN A cervical spine X-ray was performed due to complaints of neck/head pain & results read: Multilevel [id number] degenerative changes of the cervical spine.
[2024-04-03 17:14] LABS: ALANINE AMINOTRANSFERASE 27 U/L (12-78); ALBUMIN 3.4 G/DL (3.4-5.0); ALBUMIN/GLOBULIN RATIO 0.9 (1.1-1.5); ALKALINE PHOSPHATASE 62 IU/L (46-116); ANION GAP 5 (8-16); ASPARTATE AMINO TRANSFERASE 27 U/L (10-37); BILIRUBIN,TOTAL 0.2 MG/DL (0.1-1.0); BLOOD UREA NITROGEN 38 MG/DL (7-18); BUN/CREATININE RATIO 29.9 (10.0-20.0); CALCIUM 8.9 MG/DL (8.5-10.1); CHLORIDE 99 MMOL/L (99-107); CREATININE 1.27 MG/DL (0.60-1.10); GLUCOSE 83 MG/DL (70-104); POTASSIUM 4.8 MMOL/L (3.5-5.1); SODIUM 135 MMOL/L (135-145); TOTAL CARBON DIOXIDE 30.9 MMOL/L (24-32); TOTAL PROTEIN 7.3 G/DL (6.4-8.2); eCRCL 48 ML/MIN; eGFR 57 ML/MIN
[2024-04-03 19:00] VITALS: BP 121/82; PULSE 69; RESP 18; TEMP 98.7; O2SAT 97
--- NOTE | 2024-04-04 04:32 | NUR ---
RN Progress Note: PROBLEM: Depression. INTERVENTIONS: Performed 1:1 nursing assessment Administered medication's and monitored for side effects. Teach medication compliance. RN Hourly rounding. Q15 minute safety rounds. Maintained a safe and supportive environment. Encourage group activity. Assess mood. Assess pain level. RESPONSE: Client was in the [facility] at [facility]. Went to his room early. Cooperated with physical assessment. Difficulty hearing (he was not wearing his hearing aids). Mild TAMAYO and received 650 mg Tylenol Tab PO. Took PM meds. Blunted affect. Fell asleep without difficulty. LOS while O2 in use. Sitter present. PLAN: Safe discharge plan to a facility.
[2024-04-04 07:00] VITALS: BP 143/85; PULSE 67; RESP 17; TEMP 98.5; O2SAT 95
--- NOTE | 2024-04-04 16:23 | NUR ---
Nursing Progress Notes: Lamonte Problems: [place], headache, UTI, cough with yellow sputum, safe discharge plan Interventions: Q15min rounding; Q RN rounding; Medication evaluation; administration and monitoring; Active listening and therapeutic communication; maintained a safe and supportive environment; provided clear and simple instructions; open-ended questions; PRN Tylenol and Excedrin. Response: Received pt asleep. Pt woke for morning medications and took them cooperatively. Pt reported a 8/10 headache, but refused all pain medications stating "they won't help, I don't want to waist them." Pt cooperative with assessment, this RN had to write down all the questions so that he could answer them as he is very [place]. Pt reports bilateral feet tingling and a cough with thick, yellow sputum. Pt denies SI/HI and AVH. Pt approached this RN in the afternoon to take pain medication for his headache, pt requested Excedrin, administered without effect. Pt napped for the first half of the shift today, afterwards pt was social on the unit. Pt took a shower and stated that the hot water helped his headache. Pt approached this RN to show a note he had written about how he was feeling hopeful today. He discussed his dog and how much he loves it, how his brother is helping him get his life together, how he loves fishing. He asked for a new packet so that he could write his strengths, and a plan for himself. Will continue to monitor. Plan: Continues to require interruption of current crisis in a safe and therapeutic environment until safe discharge is established.
[2024-04-04 19:00] VITALS: BP 159/84; PULSE 73; RESP 18; TEMP 98.1; O2SAT 97
--- NOTE | 2024-04-05 04:27 | NUR ---
RN Progress Note: PROBLEM: Depression. Indigestion. INTERVENTIONS: Performed 1:1 nursing assessment Administered medication's and monitored for side effects. Teach medication compliance. RN Hourly rounding. Q15 minute safety rounds. Maintained a safe and supportive environment. Encourage group activity. Assess mood. Assess pain level. RESPONSE: Client was awake, in room, visiting with his roommate. Pleasant and cooperative. Took PM meds. Had snack. Did not report SI during this shift. Requested more information on medications, which was provided. Fell asleep without difficulty and used 2L O2 via nasal cannula. Sitter present. Reported indigestion and received 30 ml Mylanta with good effect. PLAN: Safe discharge plan to a facility.
[2024-04-05 07:00] VITALS: BP 122/75; PULSE 63; RESP 14; TEMP 98.5; O2SAT 93
--- NOTE | 2024-04-05 13:57 | NUR ---
Left message with Mary at [facility] (ph# [phone]) to see if there are any post hospital beds available. LEROY Kong
[2024-04-05] MEDS: traMADol 50MG tablet PO ONE (14:49)
--- NOTE | 2024-04-05 17:01 | NUR ---
Nursing Progress Notes: Lamonte Problems: FALSE [place]ASS, UTI, safe discharge plan, epistaxis, chronic headache Interventions: Q15min rounding; QH RN rounding; Medication evaluation; administration and monitoring; Active listening and therapeutic communication; maintained a safe and supportive environment; provided clear and simple instructions; open-ended questions. Response: Received pt asleep. Pt woke with an episode of epistaxis; had patient hold his head up and provided tissues, it resolved. Pt took his morning medications cooperatively. Pt cooperative with assessment with this RN using a written assessment for him to respond to. Pt denies SI/HI and AVH. Pt approached this nurse to request a stronger medication for his continuous headache, contacted PA, one time order of Ultram given per order. Pt reports that it was moderately effective. Pt observed interacting with his roommate and napping throughout the day. Pt reports that he plans to look for jobs when he leaves here. Will continue to monitor. Plan: Continues to require interruption of current crisis in a safe and therapeutic environment until safe discharge is established.
[2024-04-05 19:00] VITALS: BP 138/71; PULSE 64; RESP 16; TEMP 97.7; O2SAT 94
--- NOTE | 2024-04-06 04:55 | NUR ---
RN Progress Note: PROBLEM: Depression. Indigestion. INTERVENTIONS: Performed 1:1 nursing assessment Administered medication's and monitored for side effects. Teach medication compliance. RN Hourly rounding. Q15 minute safety rounds. Maintained a safe and supportive environment. Encourage group activity. Assess mood. Assess pain level. RESPONSE: Client stayed in his room, talking to his roommate until bedtime. Denies SI/HI. No AH/VH's. Cooperative. Took PM meds. Placed on 2L O2. Fell asleep without difficulty. Sitter present. PLAN: Safe discharge plan to a facility.
[2024-04-06 07:00] VITALS: BP 108/64; PULSE 66; RESP 16; TEMP 98.4; O2SAT 96
[2024-04-06] MEDS: meclizine 12.5mg tablet PO SCH (07:33)
--- NOTE | 2024-04-06 14:53 | NUR ---
DISCHARGE PLAN Lamonte is discharging to the [facility] tomorrow. His brother, Rishi, plans on picking him up around 2:30 PM to help him mushroom picker his meds and get settled at the [facility]. Provided both Rishi and patient resources in [place]. LEROY Kong
--- NOTE | 2024-04-06 17:35 | NUR ---
Reassessment 04/06: Pt continues on a pureed diet/thin liquids and receiving double protein with meals with average PO intake 100% x 17 meals. Pt continues receiving Ensure HP BID with great acceptance of ~92% x 12 ONS. Meal intake alone is exceeding needs though will continue to send for satiety however Ensure is not warranted-communicated with dietary. LBM on 04/05 per EMR. Will continue to monitor and make recommendations as appropriate. Recommendations: 1) Continue pureed diet; monitor need for BSS with ST 2) Double protein with meals per diet order; monitor need to discontinue 3) Discontinue ONS d/t excessive nutrient intake 4) Bowel care PRN 5) Weekly scaled weights Addendum: 04/06/24 at [address] Amended: Links added.
--- NOTE | 2024-04-06 18:00 | NUR ---
Nursing Progress Notes: Lamonte Problems: [place], unsafe discharge plan, chronic headache Interventions: Q15min rounding; QH RN rounding; Medication evaluation; administration and monitoring; Active listening and therapeutic communication; maintained a safe and supportive environment; provided clear and simple instructions; open-ended questions. Response: Patient sleeping in bed at change of shift. Patient is smiling and happy today. Grooming and appetite are good. Patient was observed doing pushups in his room. Patient denies SI/HI, AVH. Patient took a long 3 hour nap in the afternoon. Patient is pleasant and cooperative with care. Plan: Continues to require interruption of current crisis in a safe and therapeutic environment until safe discharge is established.
[2024-04-06 19:00] VITALS: RESP 20; O2SAT 96
[2024-04-06 20:00] VITALS: BP 123/76; PULSE 71; RESP 20; TEMP 97.6; O2SAT 96
--- NOTE | 2024-04-07 03:41 | NUR ---
Nursing Progress Notes: Problems: Unsure about future, concerned about discharge. Interventions: Q15min rounding; QH RN rounding; Medication evaluation; administration and monitoring; Active listening and therapeutic communication; maintained a safe and supportive environment; provided clear and simple instructions; open-ended questions. Response: Patient isolates in his room following shift change. He is well oriented to person, place, time, and situation. Patient plans his discharge tomorrow to the [facility]. Patient denies S/I, H/I, or any hallucinations. The patient assists his blind roommate around, as he has no sitter. The patient is cooperative and medication compliant. Plan: Continues to require interruption of current crisis in a safe and therapeutic environment until safe discharge is established.
[2024-04-07 07:00] VITALS: RESP 14; O2SAT 95
[2024-04-07 08:00] VITALS: BP 157/95; PULSE 55; RESP 14; TEMP 97.6; O2SAT 95
[2024-04-07] MEDS ORDERED: ESCI20TA39 PO (11:39)
[2024-04-07] MEDS ORDERED: FOLI0.8T22 PO (11:39)
[2024-04-07] MEDS ORDERED: TRAZ-251 PO (11:39)
[2024-04-07] MEDS ORDERED: HYDR-3686 PO (11:39)
[2024-04-07] MEDS ORDERED: thiamine tablet PO (11:39)
[2024-04-07] MEDS ORDERED: OXYB5TAB21 PO (11:39)
[2024-04-07] MEDS ORDERED: LEVO25TA7 PO (11:39)
[2024-04-07] MEDS ORDERED: PANT40TA54 PO (11:39)
[2024-04-07] MEDS ORDERED: ARIP5TAB53 PO (11:39)
--- NOTE | 2024-04-07 14:25 | NUR ---
Nursing Discharge Note Pt discharged from [facility] at 1412 and picked up by his brother who will be taking him to the pharmacy and to the [facility]. Pt in no acute physical or emotional distress and has been improving since admission. Pt denies SI and understands his discharge plan and instructions. DC meds reviewed with him and belongings inventoried and returned to him. Pt did not need nicotine replacement and was in a pleasant mood and smiling at discharge.
== END 2024-04-07 14:12 | disposition home or self-care (01) | DRG 885 ==
LOC: ADULT MH 21:20
PROVIDERS: ADMIT Psychiatry & Neurology Psychiatry; ATTEND Psychiatry & Neurology Psychiatry
PROC: GZHZZZZ Group Psychotherapy (ICD-10-PCS; principal; 2024-03-24)
PROC: GZ51ZZZ Individual Psychotherapy, Behavioral (ICD-10-PCS; 2024-03-24)
DX: F33.3 Major depressive disorder, recurrent, severe with psychotic symptoms (principal); R45.851 Suicidal ideations; Z59.00 Homelessness unspecified; N39.0 Urinary tract infection, site not specified; R64 Cachexia; F41.9 Anxiety disorder, unspecified; R42 Dizziness and giddiness; K21.9 Gastro-esophageal reflux disease without esophagitis; F15.90 Other stimulant use, unspecified, uncomplicated; Z20.822 Contact with and (suspected) exposure to COVID-19; L84 Corns and callosities; Z87.891 Personal history of nicotine dependence; Z68.21 Body mass index [BMI] 21.0-21.9, adult
CPT/HCPCS: 36415; 36600; 70450; 71045; 72040; 80053; 82728; 82803; 83605; 84145; 84146; 84443; 85018; 85025; 85379; 87077; 87081; 87088; 87186; 87502; 87503; 87811; 94760; 97116; 97161; 97530; A4615; A6250; C2617; J8597; Q0177